=== PATIENT | female | born 1970 | race Caucasian/White ===

== ENCOUNTER → 2016-08-15 | Outpatient (CLI) | payer OTHER ==
[~2016-08-15] MED LIST: AMITIZA8 MCG PO; CENTRUM SILVER1 EAC2 PO; CHLORTHALIDONE25 MG PO; FISH OIL300 MG PO; FLOMAX0.4 MG PO; HYDROCODONE-AP1 EAC6 PO; KETOROLAC TROME10 MG PO; LINZESS290 MCG PO; ZOFRAN ODT4 MG PO
== END ==
LOC: LITH 06:01
DX: N20.1 Calculus of ureter (principal); K21.9 Gastro-esophageal reflux disease without esophagitis; G43.909 Migraine, unspecified, not intractable, without status migrainosus; Z84.1 Family history of disorders of kidney and ureter; Z88.8 Allergy status to other drugs, medicaments and biological substances; Z90.710 Acquired absence of both cervix and uterus; Z98.890 Other specified postprocedural states; Z87.442 Personal history of urinary calculi; Z87.448 Personal history of other diseases of urinary system
CPT/HCPCS: 52317; 52318